=== PATIENT | male | born 1960 ===

== ENCOUNTER → 2018-03-09 | Outpatient (CLI) | payer BC ==
[~2018-03-09] MED LIST: ASPECOTC PO; DIPH25CA65 PO; MULT-513 PO
--- NOTE | 2018-03-16 08:16 | POLYSOMNOGRAPH REPORT ---
CLINICAL DATA: A 57-year-old male with BMI of 47.8 referred by myself and Dr. Hinton with symptoms of obstructive sleep apnea including fatigue, loud snoring, and witnessed apneic episodes. On the evening of 03/09/2018, a home sleep apnea test was performed using a [facility] type 3 monitor. RECORDING RESULTS: Total recording time was 10 hours. The patient's monitoring time and estimated sleep time was 7 hours. RESPIRATORY DATA: Very severe sleep apnea was documented. The KAYA was 63.4. There were 311 obstructive, 106 mixed, and 3 central apneic episodes. There were 22 hypopneic episodes. The longest respiratory event was 102 seconds. OXIMETRY DATA: Severe hypoxemia was seen. Oxygen mere was 49%. Mean saturation was 88%. Time below 89% was 165 minutes. HEART RATE DATA: Heart rates ranged from 60-78 beats per minute. SNORING DATA: Loud snoring was recorded throughout the night. IMPRESSION: Very severe sleep apnea/hypopnea with severe nocturnal hypoxemia with an KAYA of 63.4 and an oxygen mere of 49%. RECOMMENDATIONS: This patient should be considered for repeat sleep study with CPAP or use of auto CPAP. [id number]
== END | disposition home or self-care (01) ==
LOC: C.NEUR 08:52
PROVIDERS: ATTEND Internal Medicine Pulmonary Disease
DX: G47.30 Sleep apnea, unspecified (principal); R09.02 Hypoxemia; R53.83 Other fatigue; E66.01 Morbid (severe) obesity due to excess calories; R06.83 Snoring